=== PATIENT | female | born 1985 | race Caucasian/White ===

== ENCOUNTER 2023-04-22 12:30 | Outpatient (AMB) | payer OTHER, SELFPAY ==
--- NOTE | 2023-04-22 13:04 | A.OFFVIS_ITS ---
Intake Vital Signs 04/22/23 13:05 Height 5 ft 6 in Weight 319 lb BMI 51.5 BP 180/92 H Blood Pressure Location Rt radial Position Sitting Respiration 14 Pulse 89 Pulse Source Pulse Oximeter Intake Visit Reasons: Migraines Family Physician Required: Yes Family Physician Name: Kavita [id number] Allergies No Known Allergies Allergy (Verified 04/22/23 13:07) Medication List - Last Reconciled 04/22/23 by Ynes Crooks LPN empagliflozin (Jardiance) 10 mg PO DAILY fluticasone propionate 50 mcg/actuation (Flonase Allergy Relief) 1 spray intranasal DAILY gabapentin 100 mg PO DAILY hydroxyzine HCl 50 mg PO TID levocetirizine 5 mg PO DAILY metformin 1,000 mg PO BID zolpidem 10 mg PO BEDTIME HPI Migraines HPI Details 37-year-old female presenting today for a new patient evaluation of migraine. The patient was referred by Dr Ro. A certified chinchilla farmer was present during the visit. The patient has a longstanding history of daily headaches. She has a history of intracranial hypertension. The patient underwent a lumbar puncture about two years ago that showed elevated pressures. Her headaches improved after the LP, and then after a while they returned. She has not tried Diamox in the past. She rates her headache at 8/10 in intensity, mostly constant. She has been trying to lose weight without much success in terms of her headaches. She has not had Botox therapy in the past. She has tried aimovig, nortriptyline, Claritin, hydroxyzine, fluoxetine, Propranolol, topiramate, Fioricet, sumatriptan, triptan, Tylenol, and ibuprofen, which have not been particularly helpful. The only time she had some relief was after the lumbar puncture. She requests a referral to [facility] for further headache management, if possible, for ICH management. [facility] Medical History (Updated 04/22/23 @ 14:03 by Patel Velazquez MD) Anxiety Daily headache Depression Idiopathic intracranial hypertension Migraine Morbid obesity Positive CIARA (antinuclear antibody) Review of Systems Const All systems reviewed & are unremarkable except as noted in HPI and below Physical Exam Vital Signs: Last Vital Signs Pulse 89 04/22/23 13:05 Resp 14 04/22/23 13:05 BP 180/92 H 04/22/23 13:05 BMI result Body Mass Index 51.5 General: Appears afebrile. Alert and oriented. Mood and affect appropriate. Follows and participates in conversation appropriately. Respiratory effort is unlabored. Able to transition from sit to stand unassisted. Ambulates with bilaterally normal heel strike and toe off. Results Reviewed Results Reviewed: No imaging is available for review. Assessment & Plan Assessment & Plan (1) Migraine: Code(s): G43.909 - Migraine, unspecified, not intractable, without status migrainosus (2) Daily headache: Code(s): R51.9 - Headache, unspecified (3) Idiopathic intracranial hypertension: Code(s): G93.2 - Benign intracranial hypertension Plan Will obtain a release form for obtaining Dr. Ro's notes to see if there is anything we are missing in terms of possible therapeutic options. I briefly discussed trial of Botox therapy for migraines with the caveat that I don't think it should be trialed without ruling out persistent ICH first, especially since she has not really been successful in losing any weight to date. She does report that she has met with a dietitian to come up with a diet plan in the past. Will provide her with a referral to [facility] to establish care in the hopes of regular follow-up for ICH or consideration of serial LPs. She will return to the clinic if she chooses to proceed with the trial of intramuscular Botox injections for the migraine component of her headaches. Scribed for Dr. Velazquez by Casimiro Elam, medical laboratory technicians, on 04/22/2023. I, Dr. Velazquez, have personally reviewed and agree with the information entered by the scribe. Orders: Referrals Neurology Referral G43.909 - Migraine, unspecified, not intractable, without status migrainosus, G93.2 - Benign intracranial hypertension, R51.9 - Headache, unspecified Coding Level of Care Code New Pt Level 3 (82113) Diagnoses Migraine G43.909 Daily headache R51.9 Idiopathic intracranial hypertension G93.2
[2023-04-22 13:05] VITALS: BP 180/92; PULSE 89; RESP 14; BMI 51.5
== END 2023-04-22 14:01 | disposition home or self-care (01) ==
PROVIDERS: PCP Internal Medicine; Visit Provider Internal Medicine
DX: G43.909 Migraine, unspecified, not intractable, without status migrainosus (principal); G93.2 Benign intracranial hypertension
CPT/HCPCS: 99203

== ENCOUNTER → 2023-04-22 12:30 | Outpatient (BNVA) | payer OTHER, SELFPAY | PROVIDERS: PCP Internal Medicine; Visit Provider Internal Medicine | DX: G43.909 Migraine, unspecified, not intractable, without status migrainosus (principal); G93.2 Benign intracranial hypertension; R51.9 Headache, unspecified | CPT/HCPCS: 99202 ==